=== PATIENT | male | born 2000 | race Caucasian/White ===

== ENCOUNTER 2020-09-03 16:21 | Emergency (ER) | payer MEDICAID, OTHER ==
[~2020-09-03] VITALS: Ht 180.3 cm; Wt 129.3 kg
[~2020-09-03 16:21] MED LIST: IBUP-2213 PO; ONDA-24 PO
[2020-09-03 16:35] VITALS: BP 146/93
[2020-09-03 17:30] VITALS: BP 140/90
--- NOTE | 2020-09-03 17:30 | NUR ---
Patient discharged with v/s stable. Written and verbal after care instructions given and explained. Patient alert, oriented and verbalized understanding of instructions. Ambulatory with steady gait. All questions addressed prior to discharge. ID band removed. Patient advised to follow up with PMD. Rx of Vistaril 25mg given. Patient educated on indication of medication including possible reaction and side effects. Opportunity to ask questions provided and answered.
== END 2020-09-03 17:30 | disposition home or self-care (01) ==
LOC: MED 16:21
DX: F41.9 Anxiety disorder, unspecified (principal); R07.9 Chest pain, unspecified; K21.9 Gastro-esophageal reflux disease without esophagitis; Z79.899 Other long term (current) drug therapy
CPT/HCPCS: 93005; 99283

== ENCOUNTER 2021-04-08 15:42 | Emergency (ER) | payer OTHER ==
[~2021-04-08] VITALS: Ht 177.8 cm; Wt 132.9 kg
[2021-04-08 16:03] VITALS: BP 146/79
[2021-04-08 16:31] LABS: APPEARANCE,URINE CLEAR (CLEAR); BILIRUBIN,URINE NEGATIVE (NEGATIVE); BLOOD, URINE NEGATIVE (NEGATIVE); COLOR,URINE YELLOW (YELLOW); LEUKOCYTE ESTERASE ,URINE NEGATIVE (NEGATIVE); NITRITE, URINE NEGATIVE (NEGATIVE); UGLUCOSE NEGATIVE (NEGATIVE)
[2021-04-08 16:31] LABS: BASOPHILS # (AUTO) 0.1 K/uL (0.00-0.22); BASOPHILS % (AUTO) 1.2 % (0.0-2.0); EOSINOPHILS # (AUTO) 0.5 K/uL (0-0.4); EOSINOPHILS % (AUTO) 5.6 % (0.0-4.0); HEMATOCRIT 47.3 % (36-52); HEMOGLOBIN 16.4 g/dL (12.0-18.0); LYMPHOCYTES # (AUTO) 2.8 K/uL (2.0-11.5); LYMPHOCYTES % (AUTO) 30.5 % (20.5-51.1); MEAN CORPUSCULAR HEMOGLOBIN 31 pg (27-31); MEAN CORPUSCULAR HGB CONC 35 g/dL (33-37); MEAN CORPUSCULAR VOLUME 90.5 fL (80-94); MONOCYTES # (AUTO) 0.7 K/uL (0.8-1.0); NEUTROPHILS # (AUTO) 5.1 K/uL (1.8-7.7); NEUTROPHILS % (AUTO) 54.7 % (42.2-75.2); PLATELET COUNT (AUTO) 351 K/uL (140-450); RED BLOOD CELL COUNT(AUTO) 5.23 MIL/uL (4.20-6.10); WHITE BLOOD COUNT (AUTO) 9.3 K/uL (4.8-10.8)
[2021-04-08] MEDS: ONDANSETRON 4 MG/2 ML VIAL IVP ONE (16:31)
[2021-04-08] MEDS: KETOROLAC 30 MG/ML VIAL IVP ONE (16:31)
[2021-04-08 16:45] LABS: ALBUMIN 4.4 g/dL (3.4-5.0); ANION GAP 13.6 (8-16); CARBON DIOXIDE 30.2 mmol/L (21-32); CREATININE 1.1 mg/dL (0.6-1.3); POTASSIUM 3.8 mmol/L (3.5-5.1); TOTAL BILIRUBIN 0.6 mg/dL (0.0-1.0)
[2021-04-08] MEDS ORDERED: IBUP-2213 PO (17:54)
[2021-04-08] MEDS ORDERED: ONDA8TAB87 PO (17:54)
[2021-04-08 18:06] VITALS: BP 146/79
== END 2021-04-08 18:05 | disposition home or self-care (01) ==
LOC: MED 15:42
DX: R10.11 Right upper quadrant pain (principal); R11.0 Nausea; K21.9 Gastro-esophageal reflux disease without esophagitis
CPT/HCPCS: 36415; 76705; 80053; 81003; 83690; 85025; 96374; 96375; 99284; J1885; J2405

== ENCOUNTER 2023-04-14 05:10 | Emergency (ER) | payer OTHER ==
[~2023-04-14] VITALS: Ht 182.9 cm; Wt 127.0 kg
[~2023-04-14 05:10] MED LIST changes: +ONDA-188 PO; -ONDA-24 PO; +ONDA8TAB87 PO
[2023-04-14 05:19] VITALS: BP 149/85
--- NOTE | 2023-04-14 05:22 | NUR ---
PT TO LOBBY
[2023-04-14] MEDS ORDERED: KETOROLAC 60 MG/2 ML VIAL IM ONE ×2 (05:25→05:50)
--- NOTE | 2023-04-14 05:50 | NUR ---
pt swabbed for covid, flu and strep. samples sent to lab and logged.
[2023-04-14] MEDS ORDERED: PRED20TA5 PO (06:31)
[2023-04-14] MEDS ORDERED: ALBU0.0912 INH (06:31)
[2023-04-14] MEDS ORDERED: BENZ200C4 PO (06:32)
[2023-04-14 06:53] VITALS: BP 128/74
== END 2023-04-14 06:54 | disposition home or self-care (01) ==
LOC: MED 05:10
DX: J40 Bronchitis, not specified as acute or chronic (principal); R05.9 Cough, unspecified; Z20.822 Contact with and (suspected) exposure to COVID-19; K21.9 Gastro-esophageal reflux disease without esophagitis; Z79.899 Other long term (current) drug therapy; Z79.1 Long term (current) use of non-steroidal anti-inflammatories (NSAID)
CPT/HCPCS: 87081; 87426; 87804; 96372; 99283; J1885

== ENCOUNTER 2023-08-27 14:32 | Emergency (ER) | payer OTHER ==
[~2023-08-27] VITALS: Ht 180.3 cm; Wt 131.5 kg
[~2023-08-27 14:32] MED LIST changes: +ALBU0.0912 INH; +BENZ200C4 PO; +PRED20TA5 PO
[2023-08-27 15:26] VITALS: BP 141/91; PULSE 97; RESP 18; TEMP 97.5; O2SAT 98
[2023-08-27] MEDS ORDERED: NON ADHERENT DRESSING TP SCH (16:35)
[2023-08-27] MEDS ORDERED: BACITRACIN OINT 500 UNITS/GM PKT TP ONE (16:35)
[2023-08-27] MEDS ORDERED: IBUP-2213 PO (16:43)
[2023-08-27 17:43] VITALS: BP 141/91; PULSE 97; RESP 18; TEMP 97.5; O2SAT 98
== END 2023-08-27 17:45 | disposition home or self-care (01) ==
LOC: MED 14:32
DX: T23.101A Burn of first degree of right hand, unspecified site, initial encounter (principal); T23.141A Burn of first degree of multiple right fingers (nail), including thumb, initial encounter; R03.0 Elevated blood-pressure reading, without diagnosis of hypertension; K21.9 Gastro-esophageal reflux disease without esophagitis; Z79.899 Other long term (current) drug therapy; Z79.1 Long term (current) use of non-steroidal anti-inflammatories (NSAID); X08.8XXA Exposure to other specified smoke, fire and flames, initial encounter; Y92.89 Other specified places as the place of occurrence of the external cause; Y93.89 Activity, other specified; Y99.8 Other external cause status
CPT/HCPCS: 16020; 90471; 90715; 99283

== ENCOUNTER 2024-04-01 19:35 | Emergency (ER) | payer MEDICAID, OTHER ==
[~2024-04-01] VITALS: Ht 182.9 cm; Wt 130.6 kg
[2024-04-01 20:18] VITALS: BP 140/93; PULSE 114; RESP 20; TEMP 98.1; O2SAT 97
[2024-04-01 21:44] LABS: BASOPHILS # (AUTO) 0.1 K/uL (0.00-0.22); BASOPHILS % (AUTO) 0.8 % (0.0-2.0); EOSINOPHILS # (AUTO) 0.3 K/uL (0-0.4); EOSINOPHILS % (AUTO) 2.3 % (0.0-4.0); HEMATOCRIT 43.3 % (36-52); HEMOGLOBIN 15.1 g/dL (12.0-18.0); LYMPHOCYTES # (AUTO) 2.5 K/uL (2.0-11.5); LYMPHOCYTES % (AUTO) 18.9 % (20.5-51.1); MEAN CORPUSCULAR HEMOGLOBIN 31 pg (27-31); MEAN CORPUSCULAR HGB CONC 35 g/dL (33-37); MEAN CORPUSCULAR VOLUME 89.2 fL (80-94); MONOCYTES % (AUTO) 7.5 % (1.7-9.3); NEUTROPHILS # (AUTO) 9.2 K/uL (1.8-7.7); NEUTROPHILS % (AUTO) 70.5 % (42.2-75.2); PLATELET COUNT (AUTO) 393 K/uL (140-450); RED BLOOD CELL COUNT(AUTO) 4.85 MIL/uL (4.20-6.10); RED CELL DISTRIBUTION WIDTH 12.9 % (11.6-13.7); WHITE BLOOD COUNT (AUTO) 13.1 K/uL (4.8-10.8)
[2024-04-01 21:55] LABS: ANION GAP 14.2 (8-16); CALCIUM 9.7 mg/dL (8.5-10.1); CREATININE 1.1 mg/dL (0.6-1.3); POTASSIUM 4.2 mmol/L (3.5-5.1)
[2024-04-01 22:00] LABS: ALBUMIN 4.4 g/dL (3.4-5.0); BILIRUBIN,DIRECT 0.2 mg/dL (0.0-0.3); TOTAL BILIRUBIN 0.8 mg/dL (0.0-1.0); TOTAL PROTEIN, SERUM 8.2 g/dL (6.4-8.2)
[2024-04-01] MEDS ORDERED: KETOROLAC 15 MG/ML VIAL ONE (22:24)
[2024-04-01] MEDS: KETOROLAC 30 MG/ML VIAL IVP ONE (22:31)
[2024-04-01 23:54] VITALS: O2SAT 98
[2024-04-02] MEDS ORDERED: SULF-59 PO (05:14)
== END 2024-04-02 05:34 | disposition home or self-care (01) ==
LOC: MED 19:35
DX: L02.215 Cutaneous abscess of perineum (principal); K21.9 Gastro-esophageal reflux disease without esophagitis; Z79.899 Other long term (current) drug therapy
CPT/HCPCS: 36415; 46050; 74177; 80048; 80076; 85025; 96372; 99285; J1885; Q9967